=== PATIENT | female | born 1980 | race Caucasian/White ===

== ENCOUNTER 2016-12-02 13:35 | Emergency (ER) | payer OTHER ==
[2016-12-02 13:51] VITALS: BP 152/78; PULSE 86; RESP 18; TEMP 98.2
[2016-12-02] MEDS ORDERED: HYDROcodone/APAP 5-325MG 1 EACH TAB PO STA (14:03)
--- NOTE | 2016-12-02 14:10 | ED ---
General Adult HPI - General Chief complaint: Extremity Injury, Lower Stated complaint: Foot Pain Time Seen by Provider: 12/02/16 13:52 Source: patient, RN notes reviewed Mode of arrival: ambulatory Limitations: no limitations - History of Present Illness Initial comments: Patient is a 36-year-old female presents to the emergency room for evaluation of right ankle pain. Patient states she had reconstructive surgery on her right ankle back in 2008 in [facility]. Patient states he having chronic pain since then. Patient states over the past 2 weeks she's been having worsening pain on the lateral portion of her ankle. Patient states she feels like the screws are becoming loose. Patient states her primary care provider keeps telling her to take ibuprofen. Patient states ibuprofen is not helping her symptoms. Patient states it hurts to walk or move her ankle. Patient denies any increased swelling or warmth in the area. Patient denies numbness or tingling in her toes. Patient denies fevers or chills. Patient denies recent fall or trauma to her ankle. - Related Data Home Medications Medication Instructions Recorded Confirmed Omeprazole [PriLOSEC] 20 mg PO DAILY 12/02/16 12/02/16 Allergies Allergy/AdvReac Type Severity Reaction Status Date / Time aspirin Allergy Unknown Verified 12/02/16 13:51 Penicillins Allergy Unknown Verified 12/02/16 13:51 Childhood propoxyphene HCl AdvReac Nausea & Verified 12/02/16 13:51 [From Daryvesn] Vomiting Review of Systems ROS Statement: Those systems with pertinent positive or pertinent negative responses have been documented in the HPI. ROS Other: All systems not noted in ROS Statement are negative. Past Medical History Past Medical History: Cancer History of Any Multi-Drug Resistant Organisms: None Reported Past Surgical History: Cholecystectomy, Orthopedic Surgery, Tonsillectomy, Tubal Ligation Additional Past Surgical History / Comment(s): hand sx. Past Psychological History: No Psychological Hx Reported Smoking Status: Current some day smoker Past Alcohol Use History: Occasional Past Drug Use History: Heroin General Exam - General Exam Comments Initial Comments: Sitting in exam room. No acute distress. Limitations: no limitations General appearance: alert, in no apparent distress Head exam: Present: atraumatic, normocephalic, normal inspection Eye exam: Present: normal appearance ENT exam: Present: normal exam Neck exam: Present: normal inspection Respiratory exam: Absent: respiratory distress Right Ankle exam: Present: full ROM, tenderness (Tenderness on palpating over lateral malleolus. ), swelling Foot/Toe exam: Present: normal inspection, full ROM. Absent: tenderness Neurovascular tendon exam: Absent: pulse deficit (2+ dorsal pedal and posterior tibial pulses), abnormal cap refill (Capillary refill less than 2 seconds) Back exam: Present: normal inspection Neurological exam: Present: alert, oriented X3, CN II-XII intact, normal gait Psychiatric exam: Present: normal affect, normal mood Skin exam: Present: warm, dry, intact, normal color. Absent: rash Course Vital Signs 12/02/16 13:50 Temperature 98.2 F Pulse Rate 86 Respiratory 18 Rate Blood Pressure 152/78 O2 Sat by Pulse 95 Oximetry Medical Decision Making - Medical Decision Making Patient is a 36-year-old female presents emergency room for evaluation of right ankle pain. Patient requested and ankle x-ray last was here. Patient did not want to wait for radiologist reading requested to be sent home. Patient be discharged and advised to follow-up with primary care provider. Return parameters discussed. Case discussed with Dr. Mariee. - Radiology Data Radiology results: image reviewed Disposition Clinical Impression: Right ankle pain Disposition: HOME SELF-CARE Condition: Good Instructions: Arthralgia (ED) Additional Instructions: Ice on and off for 10-15 minutes for the next 24-48 hours. Tylenol or Motrin as needed for pain. Please follow-up with review specialist or primary care provider for reevaluation. If new symptoms develop or symptoms worsen, please return to the ER. Referrals: None,Stated [Primary Care Provider] - 1-2 days Time of Disposition: 15:32
--- NOTE | 2016-12-02 15:45 | XR ---
EXAMINATION TYPE: XR ankle complete RT DATE OF EXAM: 12/02/2016 2:13 PM COMPARISON: NONE HISTORY: Pain TECHNIQUE: 3 view right ankle FINDINGS: Prior surgical repair within the calcaneus is evident. Some mild soft tissue swelling may b e over the lateral malleolus. No acute displaced fractures are evident. The ankle mortise is intact. Follow-up study can be performed 7-10 days from acute trauma for continued pain. IMPRESSION: 1. No acute osseous abnormality.
== END 2016-12-02 15:41 | disposition home or self-care (01) ==
LOC: EC 13:35
DX: M25.571 Pain in right ankle and joints of right foot (principal); M79.89 Other specified soft tissue disorders; G89.29 Other chronic pain; F17.200 Nicotine dependence, unspecified, uncomplicated; Z79.899 Other long term (current) drug therapy; Z88.0 Allergy status to penicillin; Z88.6 Allergy status to analgesic agent; Z88.5 Allergy status to narcotic agent; Z98.890 Other specified postprocedural states
CPT/HCPCS: 99283

== ENCOUNTER 2019-04-03 10:43 | Emergency (ER) | payer OTHER ==
[2019-04-03] MEDS ORDERED: Acetaminophen-Codeine 300-30mg TAB PO STA (11:43)
[2019-04-03] MEDS ORDERED: KETOROLAC 60 MG/2 ML VIAL IM STA (11:43)
[2019-04-03] MEDS ORDERED: ACET/COD 300 MG/30 MG STARTER PACK 6 TAB BTL PO STA (11:43)
--- NOTE | 2019-04-03 11:51 | ED ---
Back Pain HPI - General Chief Complaint: Back Pain/Injury Stated Complaint: Tailbone Pain Time Seen by Provider: 04/03/19 11:07 Source: patient, RN notes reviewed, old records reviewed Limitations: no limitations - History of Present Illness Initial Comments: This is a 30-year-old female the ER for evaluation. Patient does say for evaluation regards to fall. Patient a fall about 10 days ago fell on her back going down the stairs after a day. Patient has severe back pain but no neurological complaints no loss of bowel or bladder no pain going on her back no modifying factors for pain pain is just consistent worse regardless versus infectious on it worse when she walks cannot find a comfortable spot to lie down. Patient denying any other complaints no other trauma or injury. Patient denies dysuria or difficulty with bowel movements MD Complaint: back pain, back injury, fall -: week(s) (1) Similar Symptoms Previously: Yes Place: home Radiation: buttocks Severity: moderate Severity scale (1-10): 7 Quality: sharp, aching Consistency: constant Improves With: movement, sitting upright Worsens With: none Context: fall - Related Data Previous Rx's Medication Instructions Recorded Naproxen [Naprosyn] 500 mg PO Q12HR PRN #30 tab 04/03/19 Allergies Allergy/AdvReac Type Severity Reaction Status Date / Time aspirin Allergy Unknown Verified 04/03/19 11:00 Penicillins Allergy Unknown Verified 04/03/19 11:00 Childhood codeine AdvReac Unknown Verified 04/03/19 11:00 propoxyphene HCl AdvReac Nausea & Verified 04/03/19 11:00 [From Darvon] Vomiting Review of Systems ROS Statement: Those systems with pertinent positive or pertinent negative responses have been documented in the HPI. ROS Other: All systems not noted in ROS Statement are negative. Past Medical History Past Medical History: Cancer Additional Past Medical History / Comment(s): "CA in finger", abnormal paps History of Any Multi-Drug Resistant Organisms: None Reported Past Surgical History: Cholecystectomy, Orthopedic Surgery, Tonsillectomy, Tubal Ligation Additional Past Surgical History / Comment(s): bioduct surgery, right foot surgery, hand sx. Past Psychological History: No Psychological Hx Reported Smoking Status: Former smoker Past Alcohol Use History: Occasional Past Drug Use History: Heroin General Exam - General Exam Comments Initial Comments: No focal neurological deficit noted on exam bilateral lower extremities Limitations: no limitations General appearance: alert, in no apparent distress Head exam: Present: atraumatic, normocephalic, normal inspection Eye exam: Present: normal appearance, EOMI. Absent: scleral icterus, conjunctival injection, periorbital swelling ENT exam: Present: normal exam, mucous membranes moist Neck exam: Present: normal inspection. Absent: tenderness, meningismus, lymphadenopathy Respiratory exam: Present: normal lung sounds bilaterally. Absent: respiratory distress, wheezes, rales, rhonchi, stridor Cardiovascular Exam: Present: regular rate, normal rhythm, normal heart sounds. Absent: systolic murmur, diastolic murmur, rubs, gallop, clicks GI/Abdominal exam: Present: soft, normal bowel sounds. Absent: distended, tenderness, guarding, rebound, rigid Extremities exam: Present: normal inspection, full ROM, normal capillary refill. Absent: tenderness, pedal edema, joint swelling, calf tenderness Back exam: Present: normal inspection, tenderness (Patient does have paraspinal tenderness), CVA tenderness (R), CVA tenderness (L) Neurological exam: Present: alert, oriented X3, CN II-XII intact Psychiatric exam: Present: normal affect, normal mood Skin exam: Present: warm, dry, intact, normal color. Absent: rash Course Vital Signs 04/03/19 04/03/19 10:46 13:17 Temperature 97.6 F 97.8 F Pulse Rate 81 68 Respiratory 16 18 Rate Blood Pressure 158/107 172/93 O2 Sat by Pulse 98 98 Oximetry - Reevaluation(s) Reevaluation #1: 04/03/19 11:51 Medical records reviewed Reevaluation #2: 04/03/19 11:51 Patient has improved pain control Medical Decision Making - Medical Decision Making 38 female the ER status post fall trip and fall with sacral coccyx contusion. No fracture. Patient can be discharged home - Radiology Data Radiology results: report reviewed (X-ray sacrum and coccyx and LS spine negative for traumatic injury), image reviewed Disposition Clinical Impression: Mechanical back pain, Back contusion, Fall Disposition: HOME SELF-CARE Condition: Good Instructions (If sedation given, give patient instructions): Acute Low Back Pain (ED) Prescriptions: Naproxen [Naprosyn] 500 mg PO Q12HR PRN #30 tab PRN Reason: Pain Is patient prescribed a controlled substance at d/c from ED?: No Referrals: Yulia Henriquez MD [Primary Care Provider] - 1-2 days
--- NOTE | 2019-04-03 12:55 | XR ---
EXAMINATION TYPE: XR lumbar spine 2 or 3V DATE OF EXAM: 04/03/2019 COMPARISON: None HISTORY: Fall, pain TECHNIQUE: Three-view lumbar spine FINDINGS: There 5 lumbar-type vertebral bodies. Pedicles are intact. Disc heights are preserved. Vert ebral body heights are preserved. Alignment is normal. IMPRESSION: 1. Normal three-view lumbar spine
--- NOTE | 2019-04-03 12:56 | XR ---
EXAMINATION TYPE: XR sacrum coccyx DATE OF EXAM: 04/03/2019 COMPARISON: None HISTORY: Fall, pain TECHNIQUE: Three-view sacrum and coccyx FINDINGS: Sacroiliac joints are patent. No acute fractures are evident. Postsurgical tubal ligation c lips are present. IMPRESSION: 1. Normal sacrum and coccyx
[2019-04-03 13:19] VITALS: BP 172/93; PULSE 68; RESP 18; TEMP 97.8
== END 2019-04-03 13:18 | disposition home or self-care (01) ==
LOC: EC 10:43
DX: S30.0XXA Contusion of lower back and pelvis, initial encounter (principal); Z88.0 Allergy status to penicillin; Z88.5 Allergy status to narcotic agent; Z88.6 Allergy status to analgesic agent; Z87.891 Personal history of nicotine dependence; Z85.828 Personal history of other malignant neoplasm of skin; W10.9XXA Fall (on) (from) unspecified stairs and steps, initial encounter; Y93.01 Activity, walking, marching and hiking
CPT/HCPCS: 72100; 72220; 99284; 96372; J1885

== ENCOUNTER 2021-12-28 14:39 | Emergency (ER) | payer OTHER ==
[2021-12-28 14:47] VITALS: RESP 18; TEMP 98.1
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
[2021-12-28 15:07] LABS: Basophils # (A) 0.1 k/uL (0-0.2); Basophils % (A) 1 %; Eosinophils # (A) 0.6 k/uL (0-0.7); Eosinophils % (A) 9 %; HGB 13.7 gm/dL (11.4-16.0); Lymphocytes # (A) 2.2 k/uL (1.0-4.8); Lymphocytes % (A) 30 %; MCHC 31.9 g/dL (31.0-37.0); Mean Platelet Volume 10.1; Monocytes # (A) 0.4 k/uL (0-1.0); Monocytes % (A) 5 %; Neutrophils # (A) 3.9 k/uL (1.3-7.7); Neutrophils % (A) 53 %; Platelet Count 225 k/uL (150-450); RBC 4.44 m/uL (3.80-5.40); RDW 12.9 % (11.5-15.5); WBC 7.2 k/uL (3.8-10.6)
[2021-12-28 15:26] LABS: ALT 15 U/L (4-34); AST 20 U/L (14-36); African American GFR (CKD) >90 (>60 ml/min/1.73 sqM); Albumin 4.1 g/dL (3.5-5.0); Alkaline Phosphatase 69 U/L (38-126); Anion Gap 6 mmol/L; Blood Urea Nitrogen 18 mg/dL (7-17); Calcium 8.9 mg/dL (8.4-10.2); Carbon Dioxide 24 mmol/L (22-30); Chloride 107 mmol/L (98-107); Glucose 90 mg/dL (74-99); Non-African American GFR(CKD) 79 (>60 ml/min/1.73 sqM); Potassium 4.1 mmol/L (3.5-5.1); Sodium 137 mmol/L (137-145); Total Bilirubin 0.7 mg/dL (0.2-1.3); Total Protein 6.6 g/dL (6.3-8.2)
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
--- NOTE | 2021-12-28 15:47 | XR ---
EXAMINATION TYPE: XR chest 2V DATE OF EXAM: 12/28/2021 COMPARISON: Chest x-ray 10/14/2013 HISTORY: Difficulty breathing TECHNIQUE: Frontal and lateral views of the chest are obtained. FINDINGS: There is no focal air space opacity, pleural effusion, or pneumothorax seen. The cardiac silhouette size is within normal limits. The osseous structures are intact. Apical clips are presen t in the right upper quadrant. IMPRESSION: No acute cardiopulmonary process.
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
[2021-12-28 16:05] VITALS: BP 146/96; PULSE 96
== END 2021-12-28 16:50 | disposition home or self-care (01) ==
LOC: EC 14:39
DX: R07.89 Other chest pain (principal); M54.6 Pain in thoracic spine; F11.90 Opioid use, unspecified, uncomplicated; Z87.891 Personal history of nicotine dependence; V43.52XA Car driver injured in collision with other type car in traffic accident, initial encounter; Y92.410 Unspecified street and highway as the place of occurrence of the external cause
CPT/HCPCS: 36415; 80053; 85025; 73010; 71046; 74177; 99284; Q9967

== ENCOUNTER 2023-02-26 16:22 | Emergency (ER) | payer OTHER ==
--- NOTE | 2023-02-26 16:43 | ED ---
General Adult HPI - General Stated complaint: Jaw Pain Time Seen by Provider: 02/26/23 16:41 Source: RN notes reviewed - History of Present Illness Initial comments: 42 year old female with no significant past medical history presents to the emergency department with a chief complaint of jaw pain. She reports that she was eating hard candy three days ago when she heard a loud pop. She has not taken anything for her symptoms. She denies any previous dental fillings. Denies fever, discharge. - Related Data Previous Rx's Medication Instructions Recorded Naproxen [Naprosyn] 500 mg PO Q12HR PRN #30 tab 04/03/19 Ibuprofen [Motrin] 800 mg PO Q6HR #30 tab 02/26/23 Allergies Allergy/AdvReac Type Severity Reaction Status Date / Time aspirin Allergy Unknown Verified 12/28/21 14:46 Penicillins Allergy Unknown Verified 12/28/21 14:46 Childhood codeine AdvReac Unknown Verified 12/28/21 14:46 propoxyphene HCl AdvReac Nausea & Verified 12/28/21 14:46 [From [facility]von] Vomiting Review of Systems ROS Statement: Those systems with pertinent positive or pertinent negative responses have been documented in the HPI. ROS Other: All systems not noted in ROS Statement are negative. Past Medical History Past Medical History: Cancer Additional Past Medical History / Comment(s): "CA in finger", abnormal paps History of Any Multi-Drug Resistant Organisms: None Reported Past Surgical History: Cholecystectomy, Hysterectomy, Orthopedic Surgery, Tonsillectomy, Tubal Ligation Additional Past Surgical History / Comment(s): bioduct surgery, right foot surgery, hand sx. Past Psychological History: No Psychological Hx Reported Smoking Status: Former smoker Past Alcohol Use History: Occasional Past Drug Use History: Heroin General Exam - General Exam Comments Initial Comments: Visual Physical Exam Vital signs reviewed General: Well-appearing, nontoxic, no acute distress. Head: Normocephalic, atraumatic Eyes: PERRLA, EOMI ENT: Airway patent Chest: Nonlabored breathing Skin: No visual rash, normal skin tone Neuro: Alert and oriented 3 Musculoskeletal: No gross abnormalities General: Alert, in no acute distress Head: atraumatic normocephalic. Eyes PERRL, EOMI intact, mucous membranes moist Respiratory: Lungs clear to auscultation bilaterally Cardiovascular: Heart rate regular rate and rhythm Abdominal: Soft without guarding or rebound Extremities: Normal inspection with full range of motion and normal capillary refill Neuroogic: alert and oriented 3, CN II-XII intact, able to ambulate with steady gait Skin: warm dry and intact with normal color Course Vital Signs 02/26/23 02/26/23 16:42 19:44 Temperature 97 F L 98.1 F Pulse Rate 81 85 Respiratory 16 16 Rate Blood Pressure 162/80 148/88 O2 Sat by Pulse 98 99 Oximetry Medical Decision Making - Medical Decision Making Was pt. sent in by a medical professional or institution (, [facility], [facility], urgent care, hospital, or group home...) When possible be specific @ -[No] Did you speak to anyone other than the patient for history (EMS, parent, family, police, friend...)? What history was obtained from this source @ -[No] Did you review nursing and triage notes (agree or disagree)? Why? @ -[I reviewed and agree with nursing and triage notes] Were old charts reviewed (outside hosp., previous admission, EMS record, old EKG, old radiological studies, urgent care reports/EKG's, group home records)? Report findings @ -[No old charts were reviewed] Differential Diagnosis (chest pain, altered mental status, abdominal pain women, abdominal pain men, vaginal bleeding, weakness, fever, dyspnea, syncope, headache, dizziness, GI bleed, back pain, seizure, CVA, palpatations, mental health, musculoskeletal)? @ -[not applicable] EKG interpreted by me (3pts min.). @ -[As above] X-rays interpreted by me (1pt min.). @ -[None done] CT interpreted by me (1pt min.). @ -[None done] U/S interpreted by me (1pt. min.). @ -[None done] What testing was considered but not performed or refused? (CT, X-rays, U/S, labs)? Why? @ -[None] What meds were considered but not given or refused? Why? @ -[None] Did you discuss the management of the patient with other professionals (maninder vasquez i.e. , [facility], [facility], lab, RT, psych nurse, social work faculty member, help desk rep, teacher, housing officer, onsite case manager)? Give summary @ -[No] Was smoking cessation discussed for >3mins.? @ -[No] Was critical care preformed (if so, how long)? @ -[No] Were there social determinants of health that impacted care today? How? (Homelessness, low income, unemployed, alcoholism, drug addiction, transportation, low edu. Level, literacy, decrease access to med. care, [facility], rehab)? @ -[No] Was there de-escalation of care discussed even if they declined (Discuss DNR or withdrawal of care, Hospice)? DNR status @ -[No] What co-morbidities impacted this encounter? (DM, HTN, Smoking, COPD, CAD, Cancer, CVA, ARF, Chemo, Hep., AIDS, mental health diagnosis, sleep apnea, morbid obesity)? @ -[None] Was patient admitted / discharged? Hospital course, mention meds given and route, prescriptions, significant lab abnormalities, going to OR and other pertinent info. @ --Discharged. This is a pleasant 42-year-old female with no significant past medical history who presents to the emergency department with jaw pain. Patient had a thorough history and physical exam performed on the ED. Physical exam essentially unremarkable. Heart rate regular rate and rhythm, lungs clear to auscultation bilaterally abdomen soft and nontender. Patient able to open her jaw. Patient able to ambulate with a steady gait move all extremities freely. Patient offers no specific complaints at the time of evaluation. She was discharged in stable condition. Case discussed with RENU Ram Undiagnosed new problem with uncertain prognosis? @ -[No] Drug Therapy requiring intensive monitoring for toxicity (Heparin, Nitro, Insulin, Cardizem)? @ -[No] Were any procedures done? @ -[No] Diagnosis/symptom? @ -Jaw Pain vs. TMJ Acute, or Chronic, or Acute on Chronic? @ -Acute Uncomplicated (without systemic symptoms) or Complicated (systemic symptoms)? @ -Uncomplicated Side effects of treatment? @ -[No] Exacerbation, Progression, or Severe Exacerbation? @ -[No] Poses a threat to life or bodily function? How? (Chest pain, [place], [place], pneumonia, PE, COPD, DKA, ARF, appy, cholecystitis, CVA, Diverticulitis, Homicidal, Suicidal, threat to staff... and all critical care pts) @ -Low likelihood Disposition Clinical Impression: TMJ arthralgia Disposition: HOME SELF-CARE Condition: Stable Instructions (If sedation given, give patient instructions): Arthroscopic TMJ (DC) Additional Instructions: Please take Tylenol or Motrin for pain as needed These return to the nearest emergency department symptoms worsen or persist Prescriptions: Ibuprofen [Motrin] 800 mg PO Q6HR #30 tab Is patient prescribed a controlled substance at d/c from ED?: No Referrals: Yulia Henriquez MD [Primary Care Provider] - 1-2 days Time of Disposition: 18:28
[2023-02-26 16:45] VITALS: RESP 16
[2023-02-26] MEDS ORDERED: ACETAMINOPHEN TAB 325 MG TAB PO STA (18:11)
[2023-02-26] MEDS ORDERED: KETOROLAC 15 MG/ML 1 ML VIAL IM STA (18:26)
[2023-02-26 19:48] VITALS: BP 148/88; PULSE 85; TEMP 98.1
== END 2023-02-26 19:48 | disposition home or self-care (01) ==
LOC: EC 16:22
DX: M26.629 Arthralgia of temporomandibular joint, unspecified side (principal); Z87.891 Personal history of nicotine dependence; Z88.0 Allergy status to penicillin; Z88.5 Allergy status to narcotic agent; Z88.8 Allergy status to other drugs, medicaments and biological substances
CPT/HCPCS: 99282; 96372; J1885

== ENCOUNTER 2023-09-15 20:04 | Emergency (ER) | payer OTHER ==
--- NOTE | 2023-09-15 20:18 | ED ---
Skin/Abscess/FB HPI - General Source: patient, RN notes reviewed Mode of arrival: ambulatory Limitations: no limitations <Donnell Jordan - Last Filed: 09/15/23 20:22> <Mike Miramontes - Last Filed: 09/15/23 21:48> - General Stated complaint: lump on back causing difficulty breathing Time Seen by Provider: 09/15/23 20:18 - History of Present Illness Initial comments: Patient is a 43-year-old female presenting to the ER with a chief complaint of right breast pain. She describes it as a shooting pain from her from her shoulder blade to her nipple. Denies any fevers or chills. Denies any breast redness or nipple discharge. States she has a lump on her back that is causing the pain. She states the pain is worse when she is not holding her right breast. (Donnell Jordan) Dictation was produced using [employer] dictation software. please excuse any grammatical, word or spelling errors. 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 She states that she was told that the biopsy was a noncancerous tumor. States that she has been intermittently having bouts of pain. States that she has pain to the site and that she feels pain that radiates to her right breast. She states that her right breast hurts if it is unsupported by her bra or her hand. States that even her areola and nipple feel a burning sensation. Patient has no other complaints. The ROS documented in this emergency department record has been reviewed and confirmed by me. Those systems with pertinent positive or negative responses have been documented in the HPI. All other systems are other negative and/or noncontributory. (Mike Miramontes) - Related Data Previous Rx's Medication Instructions Recorded Naproxen [Naprosyn] 500 mg PO Q12HR PRN #30 tab 04/03/19 Ibuprofen [Motrin] 800 mg PO Q6HR #30 tab 02/26/23 HYDROcodone/APAP 5-325MG [Agenda 1 tab PO Q6HR PRN 2 Days #8 tab 09/15/23 5-325] Allergies Allergy/AdvReac Type Severity Reaction Status Date / Time aspirin Allergy Unknown Verified 09/15/23 20:14 Penicillins Allergy Unknown Verified 09/15/23 20:14 Childhood codeine AdvReac Unknown Verified 09/15/23 20:14 propoxyphene HCl AdvReac Nausea & Verified 09/15/23 20:14 [From [facility]von] Vomiting Review of Systems ROS Other: All systems not noted in ROS Statement are negative. <Donnell Jordan - Last Filed: 09/15/23 20:22> ROS Other: All systems not noted in ROS Statement are negative. <Mike Miramontes - Last Filed: 09/15/23 21:48> ROS Statement: Those systems with pertinent positive or pertinent negative responses have been documented in the HPI. Past Medical History Past Medical History: Cancer Additional Past Medical History / Comment(s): "CA in finger", abnormal paps History of Any Multi-Drug Resistant Organisms: None Reported Past Surgical History: Cholecystectomy, Hysterectomy, Orthopedic Surgery, Tonsillectomy, Tubal Ligation Additional Past Surgical History / Comment(s): bioduct surgery, right foot surgery, hand sx. Past Psychological History: No Psychological Hx Reported Smoking Status: Former smoker Past Alcohol Use History: Occasional Past Drug Use History: Heroin <Donnell Jordan - Last Filed: 09/15/23 20:22> General Exam Limitations: no limitations <Donnell Jordan - Last Filed: 09/15/23 20:22> <Mike Miramontes - Last Filed: 09/15/23 21:48> - General Exam Comments Initial Comments: Visual Physical Exam Vital signs reviewed General: Well-appearing, nontoxic, no acute distress. Patient holding right breast Head: Normocephalic, atraumatic Eyes: PERRLA, EOMI ENT: Airway patent Chest: Nonlabored breathing Skin: No visual rash, normal skin tone Neuro: Alert and oriented 3 Musculoskeletal: No gross abnormalities (Donnell Jordan) General: Well-appearing, nontoxic, no acute distress. Head: Normocephalic, atraumatic Eyes: PERRLA, EOMI ENT: Airway patent Chest: Nonlabored breathing Skin: No visual rash, normal skin tone Neuro: Alert and oriented 3 Musculoskeletal: No gross abnormalities Area of interest over the right scapula: Clean dry and intact. There is no appreciable palpatory mass. Breast exam: No palpatory mass in the right breast or right axilla (Mike Miramontes) Course Vital Signs 09/15/23 20:11 Temperature 98.6 F Pulse Rate 83 Respiratory 18 Rate Blood Pressure 146/80 O2 Sat by Pulse 99 Oximetry Medical Decision Making <Donnell Jordan - Last Filed: 09/15/23 20:22> <Mike Miramontes - Last Filed: 09/15/23 21:48> - Medical Decision Making I performed the quick note portion of this chart. Electronically signed by Donnell Jordan PA-C (Donnell Jordan) Was pt. sent in by a medical professional or institution ([facility], [employer], urgent care, hospital, or [place] [facility] facility...) When possible be specific @ -No Did you speak to anyone other than the patient for history (EMS, parent, family, police, friend...)? What history was obtained from this source @ -No Did you review nursing and triage notes (agree or disagree)? Why? @ -I reviewed and agree with nursing and triage notes Were old charts reviewed (outside hosp., previous admission, EMS record, old EKG, old radiological studies, urgent care reports/EKG's, [place] [facility] facility records)? Report findings @ -No old charts were reviewed Differential Diagnosis (chest pain, altered mental status, abdominal pain women, abdominal pain men, vaginal bleeding, musculoskeletal, weakness, fever, dyspnea, syncope, headache, dizziness, GI bleed, back pain, seizure, CVA, palpatations, mental health)? @ -Not applicable EKG interpreted by me (3pts min.). @ -None done X-rays interpreted by me (1pt min.). @ -None done CT interpreted by me (1pt min.). @ -None done U/S interpreted by me (1pt. min.). @ -None done What testing was considered but not performed or refused? (CT, X-rays, U/S, labs)? Why? @ -None What meds were considered but not given or refused? Why? @ -None Did you discuss the management of the patient with other professionals (professionals i.e. , PA, [employer]IST, lab, RT, psych nurse, foster care social worker, pier worker, teacher, donor relations officer, corrections caseworker)? Give summary @ -No Was smoking cessation discussed for >3mins.? @ -No Was critical care preformed (if so, how long)? @ -No Were there social determinants of health that impacted care today? How? (Homelessness, low income, unemployed, alcoholism, drug addiction, transportation, low edu. Level, literacy, decrease access to med. care, intermediate, rehab)? @ -No Was there de-escalation of care discussed even if they declined (Discuss DNR or withdrawal of care, Hospice)? DNR status @ -No What co-morbidities impacted this encounter? (DM, HTN, Smoking, COPD, CAD, Cancer, CVA, ARF, Chemo, Hep., AIDS, mental health diagnosis, sleep apnea, morbid obesity)? @ -None Was patient admitted / discharged? Hospital course, mention meds given and route, prescriptions, significant lab abnormalities, going to OR and other pertinent info. @ -43-year-old female presents to the emergency department for pain of a previous surgical site from 2 years ago over her right scapular soft tissue. She states that it radiates to the right breast. Vital signs stable. Patient told that it is unclear what is causing her pain however that she should follow- up with her primary care doctor regarding further outpatient workup of this pain to determine the cause. Patient was told that she was to come here for pain control. Patient given prescription for analgesics discharge. Undiagnosed new problem with uncertain prognosis? @ -No Drug Therapy requiring intensive monitoring for toxicity (Heparin, Nitro, Insuli n, Cardizem)? @ -No Were any procedures done? @ -No Diagnosis/symptom? Acute, or Chronic, or Acute on Chronic? Uncomplicated (without systemic symptoms) or Complicated (systemic symptoms)? @ -Pain control Side effects of treatment? @ -No Exacerbation, Progression, or Severe Exacerbation? @ -No Poses a threat to life or bodily function? How? (Chest pain, [place], [place], pneumonia, PE, COPD, DKA, ARF, appy, cholecystitis, CVA, Diverticulitis, Homicidal, Suicidal, threat to staff... and all critical care pts) @ -No (Mike Miramontes) Disposition <Donnell Jordan - Last Filed: 09/15/23 20:22> Is patient prescribed a controlled substance at d/c from ED?: Yes If prescribed controlled substance>3 days was MAPS reviewed?: Prescribed <3 Days Time of Disposition: 21:45 <Mike Miramontes - Last Filed: 09/15/23 21:48> Clinical Impression: Pain at surgical site Disposition: HOME SELF-CARE Condition: Good Instructions (If sedation given, give patient instructions): Hydrocodone/Acetaminophen (By mouth) Prescriptions: HYDROcodone/APAP 5-325MG [Agenda 5-325] 1 tab PO Q6HR PRN 2 Days #8 tab PRN Reason: Severe Pain Referrals: None,Stated [REFERRING] - 1-2 days
[2023-09-15 20:28] VITALS: RESP 18; TEMP 98.6
[2023-09-15] MEDS: KETOROLAC 15 MG/ML 1 ML VIAL IM STA (22:23)
[2023-09-15 22:48] VITALS: BP 154/85; PULSE 82
== END 2023-09-15 22:27 | disposition home or self-care (01) ==
LOC: EC 20:04
DX: M25.511 Pain in right shoulder (principal); N64.4 Mastodynia; F11.90 Opioid use, unspecified, uncomplicated; Z88.0 Allergy status to penicillin; Z88.5 Allergy status to narcotic agent; Z88.6 Allergy status to analgesic agent; Z88.8 Allergy status to other drugs, medicaments and biological substances; Z87.891 Personal history of nicotine dependence; Z90.49 Acquired absence of other specified parts of digestive tract
CPT/HCPCS: 99283; 96372; J1885